=== PATIENT | male | born 1975 | race American Indian/Alaskan Native ===

== ENCOUNTER 2018-03-19 11:19 | Emergency (ER) | payer SELFPAY ==
[2018-03-19] MEDS ORDERED: Pantoprazole 40 MG Vial IVPUSH ONE (11:25)
[2018-03-19] MEDS ORDERED: fentaNYL 100 MCG/2 ML SDV IVPUSH ONE (11:25)
--- NOTE | 2018-03-19 11:55 | EDM.PDOC ---
ED HPI GENERAL MEDICAL PROBLEM - General Chief Complaint: Chest Pain Stated Complaint: chest pain Time Seen by Provider: 03/19/18 11:40 Source of Information: Reports: Patient, Old Records, Police History Limitations: Reports: No Limitations - History of Present Illness INITIAL COMMENTS - FREE TEXT/NARRATIVE: Antonio is a 42 year old male who is brought to the ED by police with c/o epigastric/substernal pain. He was reportedly being transported from [place] to the [facility]. He is apparently incarcerated for methamphetamine use. He reports that the past few months he has had abdominal pain. He did have an EGD at [facility] in [place] on 02/04/2018. EGD showed moderate erosive antral gastritis wth a 3 mm ulcer and mild erosive duodenitis. He was also positive for H Pylori. He has not yet started triple treatment for the H Pylori. He is to start that by the doctor in [place] [facility]. He was supposed to have a colonoscopy, but refused prep so this was not completed. He reports "they told me I have colon cancer." No available records indicate this. He reports that he has had the pain for awhile now, but today is the worst it has ever been. He described the pain as sharp. He appears very uncomfortable. He refuses to have abdomen palpated. He does report he has been nauseated and has vomited. Reports pain worsens when he takes a deep breath. Denies any shortness of breath, dizziness, diarrhea, constipation, urinary symptoms, confusion, fever, chills, diaphoresis. PSH includes an appendectomy and a cholecystectomy. Onset: Unknown/Unsure Duration: Getting Worse Location: Reports: Chest, Abdomen Quality: Reports: Sharp, Throbbing Severity: Severe Improves with: Reports: None Worsens with: Reports: Breathing, Movement Associated Symptoms: Reports: Chest Pain, Loss of Appetite, Nausea/Vomiting. Denies: Confusion, Cough, cough w sputum, Diaphoresis, Fever/Chills, Headaches, Malaise, Rash, Seizure, Shortness of Breath, Syncope, Weakness Upper Abdominal Pain Score (Numeric/FACES): 10 - Related Data Allergies Allergy/AdvReac Type Severity Reaction Status Date / Time aspirin Allergy Cannot Verified 02/03/18 19:10 Remember Home Meds: Home Meds . [No Known Home Meds] 02/03/18 [History] . [No Known Home Meds] 03/19/18 [History] Social & Family History - Tobacco Use Smoking Status *Q: Heavy Tobacco Smoker Years of Tobacco use: 25 Packs/Tins Daily: 1 - Caffeine Use Caffeine Use: Reports: Coffee, Soda - Recreational Drug Use Recreational Drug Use: Yes Drug Use in Last 12 Months: Yes Recreational Drug Type: Reports: Amphetamines (Speed), Marijuana/Hashish Recreational Drug Use Frequency: Weekly ED ROS GENERAL - Review of Systems Review Of Systems: See Below Constitutional: Reports: Decreased Appetite. Denies: Fever, Chills, Weakness, Fatigue Respiratory: Reports: No Symptoms. Denies: Shortness of Breath, Wheezing, Pleuritic Chest Pain, Cough, Sputum Cardiovascular: Reports: Chest Pain. Denies: Dyspnea on Exertion, Edema, Lightheadedness, Palpitations, Syncope Endocrine: Reports: No Symptoms GI/Abdominal: Reports: Abdominal Pain, Decreased Appetite, Flatus, Nausea, Vomiting. Denies: Black Stool, Bloody Stool, Constipation, Diarrhea, Distension , Hematemesis, Hematochezia, Melena : Reports: No Symptoms. Denies: Dysuria, Frequency, Incontinence, Urgency Musculoskeletal: Reports: No Symptoms Skin: Reports: No Symptoms Neurological: Reports: No Symptoms Psychiatric: Reports: Anxiety ED EXAM, GI/ABD - Physical Exam Exam: See Below Exam Limited By: No Limitations General Appearance: Alert, WD/WN, Moderate Distress Head: Atraumatic, Normocephalic Neck: Normal Inspection, Supple, Non-Tender, Full Range of Motion Respiratory/Chest: No Respiratory Distress, Lungs Clear, Normal Breath Sounds, No Accessory Muscle Use, Chest Non-Tender Cardiovascular: Normal Peripheral Pulses, Regular Rate, Rhythm, No Edema, No Gallop, No JVD, No Murmur, No Rub GI/Abdominal Exam: Normal Bowel Sounds, Soft, No Distention, Guarding, Tender ( bilatearl upper quadrants, epigastric). No: Rebound Back Exam: Normal Inspection, Full Range of Motion. No: CVA Tenderness (L), CVA Tenderness (R) Extremities: Normal Inspection, Normal Range of Motion, Non-Tender, Normal Capillary Refill, No Pedal Edema Neurological: Alert, Oriented, CN II-XII Intact, Normal Cognition, Normal Gait, Normal Reflexes, No Motor/Sensory Deficits Psychiatric: Anxious Skin Exam: Warm, Dry, Intact, Normal Color, No Rash Lymphatic: No Adenopathy EKG INTERPRETATION EKG Date: 03/19/18 Rhythm: NSR [place]: Normal P-Wave: Present QRS: Normal ST-T: Normal QT: Normal Comparison: NA - No Prior EKG Course - Vital Signs Last Recorded V/S: Last Vital Signs Temp 97.3 F 03/19/18 11:56 Pulse 69 03/19/18 11:56 Resp 24 H 03/19/18 11:56 BP 130/77 03/19/18 11:56 Pulse Ox 98 03/19/18 11:56 - Orders/Labs/Meds Labs: Laboratory Tests 03/19/18 03/19/18 03/19/18 Range/Units 11:20 11:40 11:40 WBC 9.5 (5.0-10.0) 10^3/uL RBC 5.20 (4.50-6.00) 10^6/uL Hgb 15.0 (14.0-18.0) g/dL Hct 45.1 (40.0-54.0) % MCV 86.7 (82.0-94.0) fL MCH 28.8 (27.0-32.0) pg MCHC 33.3 (33.0-38.0) g/dL RDW Coeff of Karla 13.8 (11.0-15.0) % Plt Count 343 (150-400) 10^3/uL Neut % (Auto) 72.2 (35-85) % Lymph % (Auto) 20.3 (10-55) % Bullock % (Auto) 5.6 (0-16) % Eos % (Auto) 1.4 (0-5) % Baso % (Auto) 0.5 (0-3) % Neut # (Auto) 6.87 (1.80-7.00) 10^3/uL Lymph # (Auto) 1.93 (1.00-4.80) 10^3/uL Bullock # (Auto) 0.53 (0.00-0.80) 10^3/uL Eos # (Auto) 0.13 (0.00-0.45) 10^3/uL Baso # (Auto) 0.05 10^3/uL PT 10.8 (9.7-12.3) SEC INR 1.04 (0.92-1.18) Sodium 141 (136-145) mEq/L Potassium 4.2 (3.5-5.0) mEq/L Chloride 106 (98-106) mEq/L Carbon Dioxide 25 (21-32) mmol/L BUN 11 (7-18) mg/dL Creatinine 1.0 (0.7-1.3) mg/dL Est Cr Clr Drug Dosing 102.49 mL/min Estimated GFR (MDRD) > 60 (>=60) mL/min Glucose 93 (75-99) mg/dL Calcium 8.2 L (8.4-10.1) mg/dL Total Bilirubin 0.5 (0.0-1.0) mg/dL AST 14 L (15-37) U/L ALT 34 (12-78) U/L Alkaline Phosphatase 118 H (46-116) U/L Lactate Dehydrogenase 112 (100-190) U/L Creatine Kinase 44 (35-232) U/L Troponin I < 0.017 (0.00-0.06) ng/mL Total Protein 7.2 (6.4-8.2) g/dL Albumin 3.5 (3.4-5.0) g/dL Amylase 43 (25-115) U/L Meds: Medications Discontinued Medications Generic Name Dose Route Start Last Admin Trade Name Freq PRN Reason Stop Dose Admin Al Hydroxide/Mg Hydroxide 30 0 ml 03/19/18 12:13 03/19/18 12:47 ml/ Lidocaine HCl 15 ml PO 03/19/18 12:14 45 ml ONETIME ONE Administration Fentanyl 50 mcg 03/19/18 11:25 03/19/18 11:43 Sublimaze IVPUSH 03/19/18 11:26 50 mcg ONETIME ONE Administration Pantoprazole Sodium 80 mg 03/19/18 11:25 03/19/18 11:43 Protonix Iv IVPUSH 03/19/18 11:26 80 mg ONETIME ONE Administration - Re-Assessments/Exams Free Text/Narrative Re-Assessment/Exam: 03/19/18 12:15 Labs all stable. Patient's pain improved some with pain medications. Will give patient GI cocktail. Free Text/Narrative Re-Assessment/Exam: SEE NURSES NOTE FOR PMH, PSH, SH, AND FH. Departure - Departure Time of Disposition: 12:54 Disposition: Home, Self-Care 01 Condition: Fair Clinical Impression: Peptic ulcer associated with Helicobacter pylori infection - Discharge Information Instructions: Helicobacter Pylori Infection, Peptic Ulcer, [id number] Referrals: PCP,Unknown [Ordering Only Provider] - Forms: ED Department Discharge Additional Instructions: [facility] up with physician at the [facility] This was discussed with them and they will treat H Pylori upon arrival
[2018-03-19 12:03] LABS: CHLORIDE,CL 106 mEq/L (98-106); SODIUM,NA 141 mEq/L (136-145)
[2018-03-19] MEDS ORDERED: Alum Hydrox/Mag Hydrox/Simeth 30 ML, Lidocaine 2% 15 ML PO ONE ×2 (12:13)
== END 2018-03-19 13:05 | disposition home or self-care (01) ==
LOC: MERGE 11:19 → CC.ED 11:19
DX: K27.9 Peptic ulcer, site unspecified, unspecified as acute or chronic, without hemorrhage or perforation (principal); B96.81 Helicobacter pylori [H. pylori] as the cause of diseases classified elsewhere; R11.2 Nausea with vomiting, unspecified; F17.210 Nicotine dependence, cigarettes, uncomplicated; Z88.6 Allergy status to analgesic agent
CPT/HCPCS: 36415; 80053; 82150; 82550; 83615; 84484; 85025; 85610; 93005; 96374; 96375; 99284; A9270; C9113; J3010